=== PATIENT | male | born 1990 | race Caucasian/White ===

== ENCOUNTER 2021-04-21 13:58 | Emergency (ER) | payer OTHER, SELFPAY ==
[2021-04-21 15:16] VITALS: BP 125/74; BP 132/88; PULSE 56; PULSE 58; RESP 18; TEMP 36.8; O2SAT 100; O2SAT 99; BMI 27.3
--- NOTE | 2021-04-21 15:20 | ED.GENADULT ---
HPI - General Adult General Chief complaint: Ear Problems <SANDRA Weiss Last Filed: 04/23/21 00:00> Stated complaint: EAR RINGING, DIZZINESS <SANDRA Weiss Last Filed: 04/23/21 00:00> Time Seen by Provider: 04/21/21 15:16 <SANDRA Weiss Last Filed: 04/23/21 00:00> Source: patient <SANDRA Dove Last Filed: 04/21/21 17:01> Mode of arrival: ambulatory <SANDRA Dove Last Filed: 04/21/21 17:01> History of Present Illness HPI narrative: 30-year-old male with no significant past medical history presenting to the ED complaining right ear ringing beginning last night around 10:00 p.m. with associated lightheadedness/dizziness and feeling off balance. Admits symptoms lasted about 2 minutes. Reports symptoms exacerbated by anxiety. Denies symptoms at present. Denies headache, visual loss, nausea/vomiting, fever, chills, cough, sore throat, CP/SOB, LOC <SANDRA Dove Last Filed: 04/21/21 17:01> Related Data Allergies/adverse reactions: Allergies Allergy/AdvReac Type Severity Reaction Status Date / Time No Known Allergies Allergy Verified 04/21/21 15:15 [No Known Allergies*] <SANDRA Weiss Last Filed: 04/23/21 00:00> Review of Systems Review of Systems: Constitutional: No Fever, No Chills, No Fatigue, No Malaise ENT/Mouth: No Hearing loss, + Ear Pain, +ear ringing, No Nasal Congestion, No Sinus Pain, No sore throat, No Rhinorrhea, No Swallowing Difficulty Eyes: No Eye Pain, No Swelling, No Redness, No Foreign Body, No Vision Changes Cardiovascular: No Chest Pain, No SOB Respiratory: No Cough, No Dyspnea Gastrointestinal: No Nausea, No Vomiting, No Abdominal pain Genitourinary: No Dysuria, No Hematuria, No Flank Pain Musculoskeletal: No joint pain, No Myalgias, No Joint Swelling Skin: No Skin Lesions, No rash Neuro: No Weakness, No Numbness, No Paresthesias, No Loss of Consciousness, + lightheadedness/ Dizziness, No Headache <SANDRA Dove Last Filed: 04/21/21 17:01> Yes all other systems are reviewed and are negative <SANDRA Dove - Last Filed: 04/21/21 17:01> Neurologic: Denies Abnormal speech present <SANDRA Dove - Last Filed: 04/21/21 17:01> [facility] Past Medical History Attestation statement: The following information was validated with the patient. <SANDRA Dove - Last Filed: 04/21/21 17:01> Medical History: Medical History (Updated 04/22/21 @ 00:01 by Patricia Calvo) No pertinent past medical history <SANDRA Weiss - Last Filed: 04/23/21 00:00> Social History Social History: Social History Advance Directives: No Advance Directives Information Provided: No <SANDRA Weiss - Last Filed: 04/23/21 00:00> Physical Exam Vital Signs: Vital Signs: Last Vital Signs Temp 98.3 F 04/21/21 16:04 Pulse 66 04/21/21 16:06 Resp 16 04/21/21 16:04 BP 121/75 04/21/21 16:06 Pulse Ox 100 04/21/21 16:04 Body Mass Index 27.3 <SANDRA Weiss - Last Filed: 04/23/21 00:00> Vital Signs: Last Vital Signs Temp 98.3 F 04/21/21 16:04 Pulse 66 04/21/21 16:06 Resp 16 04/21/21 16:04 BP 121/75 04/21/21 16:06 Pulse Ox 100 04/21/21 16:04 Body Mass Index 27.3 <SANDRA Dove - Last Filed: 04/21/21 17:01> Const: General: cooperative, healthy appearing and no acute distress <SANDRA Dove - Last Filed: 04/21/21 17:01> Orientation/consciousness: patient oriented x3 <SANDRA Dove - Last Filed: 04/21/21 17:01> Limitations: no limitations <SANDRA Dove - Last Filed: 04/21/21 17:01> HENMT: Head: Yes normal to inspection and Yes atraumatic <SANDRA Dove - Last Filed: 04/21/21 17:01> Ears: hearing grossly normal bilaterally, external ears normal, TM's normal bilaterally and mastoids normal <SANDRA Dove - Last Filed: 04/21/21 17:01> General nose exam: Normal external nose present and Normal nares present <Keysha Warner [place] - Last Filed: 04/21/21 17:01> Face and sinus: Yes normal facial exam <Keysha Warner [place] - Last Filed: 04/21/21 17:01> Mouth: Normal oral and palatal mucosa present <Keysha Warner [place] - Last Filed: 04/21/21 17:01> Throat: Yes posterior oropharynx normal, Yes tonsils normal and Yes uvula midline <Keysha Warner [place] - Last Filed: 04/21/21 17:01> Eyes: General: appearance normal, both eyes and all related structures <Keysha Warner [place] - Last Filed: 04/21/21 17:01> Pupils: Equal, round and reactive pupils present <Keysha Warner [place] - Last Filed: 04/21/21 17:01> EOM: EOMs intact bilaterally <Keysha Warner [place] - Last Filed: 04/21/21 17:01> Neck: Neck: Yes normal visual inspection and Yes no lymphadenopathy <Keysha Warner [place] - Last Filed: 04/21/21 17:01> Resp: Effort & Inspection: normal respiratory effort <SANDRA Dove Last Filed: 04/21/21 17:01> Auscultation: clear to auscultation bilaterally, no rales, no rhonchi and no wheezes <Keysha Warner [facility] Last Filed: 04/21/21 17:01> Cardio: Rate: regular rate <Keysha Warner [facility] Last Filed: 04/21/21 17:01> Heart sounds: S1 normal heart sound present and S2 normal heart sound present <SANDRA Dove - Last Filed: 04/21/21 17:01> GI: Inspection: Yes normal to inspection <SANDRA Dove - Last Filed: 04/21/21 17:01> Palpation (GI): Soft to palpation, nontender, no guarding and not rigid <Keysha [facility] - Last Filed: 04/21/21 17:01> Skin: Rashes: no rashes <SANDRA Dove - Last Filed: 04/21/21 17:01> Wounds: no wounds <SANDRA Dove - Last Filed: 04/21/21 17:01> Neuro: General: patient oriented x3, gait normal, tone normal, moves all extremities, no focal motor deficits and CN's II-XI intact bilaterally <SANDRA Dove - Last Filed: 04/21/21 17:01> Cranial nerves: Yes Equal, round and reactive pupils present <SANDRA Dove - Last Filed: 04/21/21 17:01> Cognition (Neuro): normal cognition <SANDRA Dove - Last Filed: 04/21/21 17:01> Speech: No Abnormal speech present <SANDRA Dove - Last Filed: 04/21/21 17:01> Gait exam (Neuro): Normal gait present <SANDRA Dove - Last Filed: 04/21/21 17:01> Motor exam (neuro): 5/5 motor strength present throughout and Pronator motor function not present <SANDRA Dove - Last Filed: 04/21/21 17:01> Extrem: General: Yes normal to inspection <SANDRA Dove - Last Filed: 04/21/21 17:01> Course Course Course Narrative: Patient presents to the ED for resolved Dizziness with ringing in the EAR and off balance that occurred today while walking. Patient presently has no symptoms. negative for any neuro deficits. Basic labs ordered. This is a medical screening. <SANDRA Weiss - Last Filed: 04/23/21 00:00> Patient presents to the ED for resolved Dizziness with ringing in the EAR and off balance that occurred today while walking. Patient presently has no symptoms. negative for any neuro deficits. Basic labs ordered. This is a medical screening. -1700--orthostatic vital signs negative. Labs unremarkable. EKG nonischemic. Results discussed with patient including worrisome signs and symptoms and strict return precautions, he verbalized understanding feel safe for discharge home <SANDRA Dove - Last Filed: 04/21/21 17:01> Medical Decision Making MDM Narrative Medical decision making narrative: 30-year-old male with no significant past medical history presenting to the ED complaining right ear ringing beginning last night around 10:00 p.m. with associated lightheadedness/dizziness and feeling off balance. Denies symptoms at present. On exam vital signs stable, NAD, well appearing, no focal neuro deficits. Low concern for CVA/TIA, ACS, or BPPV. Rule out metabolic abnormalities Plan: EKG, labs, GRACE, orthostatic vital signs, reassess <SANDRA Dove - Last Filed: 04/21/21 17:01> Lab Data Result diagrams: : 04/21/21 16:15 04/21/21 16:15 <SANDRA Weiss - Last Filed: 04/23/21 00:00> Labs: Lab Results 04/21/21 04/21/21 04/21/21 Range/Units 16:15 16:15 16:15 WBC 10.3 (4.8-10.8) X10*3/uL RBC 4.62 (4.60-5.80) X10*6/uL Hgb 14.1 (14.0-18.0) g/dl Hct 41.7 L (42-52) % MCV 90.3 (80-98) fL MCH 30.5 (27.0-33.0) pg MCHC 33.8 (31.0-36.0) g/dl RDW 13.1 (11.0-16.0) % Plt Count 250 (160-400) X10*3/uL MPV 9.9 (9.4-12.4) fL Immature Gran % (Auto) 0.2 (0.0-0.4) % Neut % (Auto) 72.4 (45-73) % Lymph % (Auto) 17.2 L (20-40) % Cocke % (Auto) 7.6 (2-11) % Eos % (Auto) 2.2 (0-4) % Baso % (Auto) 0.4 (0-2) % Lymph # (Auto) 1.8 (1.2-4.9) X10*3/uL Cocke # (Auto) 0.8 (0.1-1.2) X10*3/uL Eos # (Auto) 0.2 (0.0-0.4) X10*3/uL Baso # (Auto) 0.0 (0.0-0.2) X10*3/uL Abs Immat Gran (auto) 0.02 (0.00-0.03) X10*3/uL Absolute Neuts (auto) 7.5 (2.0-8.3) X10*3/uL Absolute Nucleated RBC 0.000 (0.0-0.012) X10*3/uL Nucleated RBC % (auto) 0.0 (0.0-0.2) /100WBC Sodium 140 (135-145) mmol/L Potassium 4.3 (3.3-5.1) mmol/L Chloride 105 (96-108) mmol/L Carbon Dioxide 26 (22-29) mmol/L Anion Gap 13 (12-20) BUN 10 (9-16) mg/dL Creatinine 0.94 (0.5-1.4) mg/dL Estim Creat Clear Calc 118.1 Estimated GFR > 60 Random Glucose 81 (60-115) mg/dL Calcium 9.5 (8.4-10.2) mg/dL Magnesium 2.1 (1.6-2.6) mg/dL Total Bilirubin 0.5 (0.0-1.0) mg/dL AST 23 (5-37) U/L ALT 34 (0-40) U/L Alkaline Phosphatase 57 (39-117) U/L Total Protein 8.0 (6.5-8.0) g/dL Albumin 4.9 (3.5-5.0) g/dL <SANDRA Weiss - Last Filed: 04/23/21 00:00> Lab Results 04/21/21 04/21/21 04/21/21 Range/Units 16:15 16:15 16:15 WBC 10.3 (4.8-10.8) X10*3/uL RBC 4.62 (4.60-5.80) X10*6/uL Hgb 14.1 (14.0-18.0) g/dl Hct 41.7 L (42-52) % MCV 90.3 (80-98) fL MCH 30.5 (27.0-33.0) pg MCHC 33.8 (31.0-36.0) g/dl RDW 13.1 (11.0-16.0) % Plt Count 250 (160-400) X10*3/uL MPV 9.9 (9.4-12.4) fL Immature Gran % (Auto) 0.2 (0.0-0.4) % Neut % (Auto) 72.4 (45-73) % Lymph % (Auto) 17.2 L (20-40) % Cocke % (Auto) 7.6 (2-11) % Eos % (Auto) 2.2 (0-4) % Baso % (Auto) 0.4 (0-2) % Lymph # (Auto) 1.8 (1.2-4.9) X10*3/uL Cocke # (Auto) 0.8 (0.1-1.2) X10*3/uL Eos # (Auto) 0.2 (0.0-0.4) X10*3/uL Baso # (Auto) 0.0 (0.0-0.2) X10*3/uL Abs Immat Gran (auto) 0.02 (0.00-0.03) X10*3/uL Absolute Neuts (auto) 7.5 (2.0-8.3) X10*3/uL Absolute Nucleated RBC 0.000 (0.0-0.012) X10*3/uL Nucleated RBC % (auto) 0.0 (0.0-0.2) /100WBC Sodium 140 (135-145) mmol/L Potassium 4.3 (3.3-5.1) mmol/L Chloride 105 (96-108) mmol/L Carbon Dioxide 26 (22-29) mmol/L Anion Gap 13 (12-20) BUN 10 (9-16) mg/dL Creatinine 0.94 (0.5-1.4) mg/dL Estim Creat Clear Calc 118.1 Estimated GFR > 60 Random Glucose 81 (60-115) mg/dL Calcium 9.5 (8.4-10.2) mg/dL Magnesium 2.1 (1.6-2.6) mg/dL Total Bilirubin 0.5 (0.0-1.0) mg/dL AST 23 (5-37) U/L ALT 34 (0-40) U/L Alkaline Phosphatase 57 (39-117) U/L Total Protein 8.0 (6.5-8.0) g/dL Albumin 4.9 (3.5-5.0) g/dL <SANDRA Dove - Last Filed: 04/21/21 17:01> ECG Data Attestation: I personally reviewed and interpreted this ECG as follows: <SANDRA Dove - Last Filed: 04/21/21 17:01> Interpretation: EKG sinus bradycardia with a rate of 48. Nonischemic/NSTEMI <SANDRA Dove - Last Filed: 04/21/21 17:01> Discharge Plan Discharge Clinical Impression: Ear ringing, Episodic lightheadedness <SANDRA Weiss - Last Filed: 04/23/21 00:00> Patient Disposition: Home, Self-Care <SANDRA Weiss - Last Filed: 04/23/21 00:00> Instructions: Tinnitus (ED) <SANDRA Weiss - Last Filed: 04/23/21 00:00> Additional Instructions: Your blood work was reassuring today in the emergency department It is important for you to follow-up with the ear nose throat specialist Please stay hydrated If her symptoms persist or worsen, recur/become persistent or unbearable please return to the ED <SANDRA Weiss - Last Filed: 04/23/21 00:00> Referrals: Kevyn Chow [Physician] - 2 days <SANDRA Weiss - Last Filed: 04/23/21 00:00> Interventions: ED Discharge Assessment Last Done: 04/21/21 17:06 <SANDRA Weiss - Last Filed: 04/23/21 00:00> Discharge Date/Time: 04/21/21 17:06 <SANDRA Weiss - Last Filed: 04/23/21 00:00>
--- NOTE | 2021-04-21 15:45 | ECG_ITS ---
Test Reason : DIZZINESS Blood Pressure : / mmHG Vent. Rate : 048 BPM Atrial Rate : 048 BPM P-R Int : 148 ms QRS Dur : 092 ms QT Int : 442 ms P-R-T Axes : 042 041 022 degrees QTc Int : 394 ms Sinus bradycardia Otherwise normal ECG When compared with ECG of 04-JUN-2017 12:09, No significant change was found Referred By: Keysha Warner Electronically Signed By:DENNY WILLAMS MD
[2021-04-21 16:04] VITALS: BP 121/77; PULSE 50; RESP 16; TEMP 36.8; O2SAT 100
[2021-04-21 16:05] VITALS: BP 122/71; BP 124/69; PULSE 50; PULSE 53
[2021-04-21 16:06] VITALS: BP 121/75; PULSE 66
[2021-04-21 16:19] LABS: MANUAL DIFF FLAG NO
[2021-04-21 16:25] LABS: Basophils Percent Auto 0.4 % (0-2); Eosinophils Absolute Auto 0.2 X10*3/uL (0.0-0.4); Eosinophils Percent Auto 2.2 % (0-4); Hematocrit 41.7 % (42-52); Hemoglobin 14.1 g/dl (14.0-18.0); Imm Gran Abs Auto 0.02 X10*3/uL (0.00-0.03); Imm Gran Pct Auto 0.2 % (0.0-0.4); Lymphocytes Absolute Auto 1.8 X10*3/uL (1.2-4.9); Lymphocytes Percent Auto 17.2 % (20-40); Mean Corpuscular HGB Conc 33.8 g/dl (31.0-36.0); Mean Corpuscular Hemoglobin 30.5 pg (27.0-33.0); Mean Corpuscular Volume 90.3 fL (80-98); Mean Platelet Volume 9.9 fL (9.4-12.4); Monocytes Absolute Auto 0.8 X10*3/uL (0.1-1.2); Monocytes Percent Auto 7.6 % (2-11); Neutrophils Absolute Auto 7.5 X10*3/uL (2.0-8.3); Neutrophils Percent Auto 72.4 % (45-73); Platelet Count 250 X10*3/uL (160-400); Red Blood Count 4.62 X10*6/uL (4.60-5.80); Red Cell Distribution Width 13.1 % (11.0-16.0); White Blood Count 10.3 X10*3/uL (4.8-10.8)
[2021-04-21 16:44] LABS: Magnesium 2.1 mg/dL (1.6-2.6)
[2021-04-21 16:45] LABS: Alanine Aminotransferase 34 U/L (0-40); Albumin Level 4.9 g/dL (3.5-5.0); Alkaline Phosphatase 57 U/L (39-117); Anion Gap 13 (12-20); Aspartate Amino Transferase 23 U/L (5-37); Bilirubin Total 0.5 mg/dL (0.0-1.0); Blood Urea Nitrogen 10 mg/dL (9-16); Calcium 9.5 mg/dL (8.4-10.2); Carbon Dioxide 26 mmol/L (22-29); Chloride 105 mmol/L (96-108); Creatinine Clr Calc Pharmacy 118.1; Estimated Glomerular Filt Rate > 60; Glucose Random 81 mg/dL (60-115); Potassium 4.3 mmol/L (3.3-5.1); Sodium 140 mmol/L (135-145)
== END 2021-04-21 17:06 | disposition home or self-care (01) ==
PROVIDERS: Physician Assistant; Emergency Provider Emergency Medicine
DX: H92.01 Otalgia, right ear (principal); H93.13 Tinnitus, bilateral; R42 Dizziness and giddiness
CPT/HCPCS: 36415; 80053; 83735; 85025; 93005; 99283; 99284

== ENCOUNTER 2022-10-06 14:08 | Emergency (ER) | payer OTHER, SELFPAY ==
--- NOTE | ~2022-10-06 | XR_ITS ---
EXAMINATION: XR HAND, RIGHT XR HAND, LEFT CLINICAL INFORMATION: Pain after dogbite COMPARISON: 01/24/2019 TECHNIQUE: 3 views of the right hand. 3 views of the left hand. FINDINGS: Right hand: No fracture or dislocation. Appropriate alignment. Joint spaces are maintained. Soft tissue gas in the thenar region. No radiopaque foreign body. Left hand: No fracture or dislocation. Appropriate alignment. Joint spaces are maintained. The soft tissues are unremarkable. No radiopaque foreign body. XR/XR hand LT min 3V IMPRESSION: Soft tissue gas in the right thenar region. No radiopaque foreign body. No fracture or malalignment.
--- NOTE | ~2022-10-06 | XR_ITS ---
EXAMINATION: XR HAND, RIGHT XR HAND, LEFT CLINICAL INFORMATION: Pain after dogbite COMPARISON: 01/24/2019 TECHNIQUE: 3 views of the right hand. 3 views of the left hand. FINDINGS: Right hand: No fracture or dislocation. Appropriate alignment. Joint spaces are maintained. Soft tissue gas in the thenar region. No radiopaque foreign body. Left hand: No fracture or dislocation. Appropriate alignment. Joint spaces are maintained. The soft tissues are unremarkable. No radiopaque foreign body. XR/XR hand RT min 3V IMPRESSION: Soft tissue gas in the right thenar region. No radiopaque foreign body. No fracture or malalignment.
--- NOTE | 2022-10-06 14:20 | ED.ANIMALBIT ---
HPI - Animal Bite General Chief Complaint: Animal Bite <SANDRA Rogel - Last Filed: 10/06/22 14:22> Stated Complaint: DOG BITES TO HANDS <SANDRA Rogel - Last Filed: 10/06/22 14:22> Time Seen by Provider: 10/06/22 15:56 <SANDRA Rogel - Last Filed: 10/06/22 14:22> Source: patient <Katiuska Jones MD - Last Filed: 10/06/22 17:01> Mode of arrival: ambulatory <Katiuska Jones MD - Last Filed: 10/06/22 17:01> Limitations: no limitations <Katiuska Jones MD - Last Filed: 10/06/22 17:01> History of Present Illness HPI narrative: Patient comes to the emergency room complaining of bilateral hand dog bites. Patient states that this dog belongs to his cousin. Patient is old and grumpy. Patient tried taking a chain of the dogs neck, the dog snapped and bit him in both hands. Patient states that he is unsure about his tetanus shot. Also, to his knowledge the dog has no immunizations but has belong to his cousin for a long time. Patient states that he is not concerned with rabies, states that the dog has bitten many people in the past and no one has gotten rabies. Patient states that his cousin decided to euthanize the dog today because the dog has a poor quality of life <Katiuska Jones MD - Last Filed: 10/06/22 17:01> Related Data Home Medications: Previous Rx's Medication Instructions Recorded amoxicillin 500 mg-potassium 1 tab PO BID #14 tabs 10/06/22 clavulanate 125 mg tablet (Augmentin) ibuprofen 600 mg tablet 600 mg PO TID PRN fever or pain 10/06/22 #20 tabs <SANDRA Rogel - Last Filed: 10/06/22 14:22> Allergies/Adverse Reactions: Allergies Allergy/AdvReac Type Severity Reaction Status Date / Time No Known Allergies Allergy Verified 04/21/21 15:15 [No Known Allergies*] <SANDRA Rogel - Last Filed: 10/06/22 14:22> Review of Systems Review of Systems: Constitutional : No Weight loss, No Fever, No Chills, No Night Sweats, No Fatigue, No Malaise ENT/Mouth : No Hearing loss, No Ear Pain, No Nasal Congestion, No Sinus Pain, No Hoarseness, No sore throat, No Rhinorrhea, No Swallowing Difficulty Eyes: No Eye Pain, No Swelling, No Redness, No Foreign Body, No Discharge, No Vision Changes Cardiovascular : No Chest Pain, No SOB, No Dyspnea on Exertion, No Orthopnea, No Edema, No Palpitations Respiratory : No Cough, No Sputum, No Wheezing, No Smoke Exposure, No Dyspnea Gastrointestinal : No Nausea, No Vomiting, No Diarrhea, No Constipation, No abdominal Pain, No Hematochezia, No Melena Genitourinary : no irregular bleeding, No Dysuria, No Urinary Frequency, No Hematuria, No Urinary Incontinence, No Urgency, No Flank Pain, No Urinary Flow Changes, No Hesitancy Musculoskeletal : No joint pain, No Myalgias, No Joint Swelling Skin : Bilateral puncture wounds to both hands Neuro : No Weakness, No Numbness, No Paresthesias, No Loss of Consciousness, No Dizziness, No Headache Psych : No Anxiety/Panic, No Depression, No SI/HI/AH/VH, No Social Issues, Heme/Lymph: No Bruising, No Bleeding,No Lymphadenopathy Endocrine : No Polyuria, No Polydipsia, No Temperature Intolerance <Katiuska Jones MD - Last Filed: 10/06/22 17:01> [facility] Past Medical History Medical History: Medical History No pertinent past medical history <SANDRA Rogel - Last Filed: 10/06/22 14:22> Social History Social History: Social History Advance Directives: No Advance Directives Information Provided: Yes <SANDRA Rogel - Last Filed: 10/06/22 14:22> Physical Exam ED Vital Signs: Vital Signs - 24 hr 10/06/22 15:05 Temperature 97.0 F Pulse Rate 77 Respiratory Rate 16 Blood Pressure 114/78 Pulse Oximetry 98 Oxygen Delivery Method Room Air BMI result Body Mass Index 26.2 <SANDRA Rogel - Last Filed: 10/06/22 14:22> Vital Signs - 24 hr 10/06/22 15:05 Temperature 97.0 F Pulse Rate 77 Respiratory Rate 16 Blood Pressure 114/78 Pulse Oximetry 98 Oxygen Delivery Method Room Air BMI result Body Mass Index 26.2 <Katiuska Jones MD - Last Filed: 10/06/22 17:01> Const Other: Appearance: Alert. Oriented X3. No acute distress. Eyes: Pupils equal, round and reactive to light. ENT: Pharynx normal. Neck: Normal inspection. Neck supple. No lymph nodes noted. No crepitus CVS: Normal heart rate and rhythm. Pulses normal. Normal S1 and S2 Respiratory: No respiratory distress. Breath sounds normal. No Wheezing. No rales Abdomen: Soft and nontender. No rigidity. No distention. Skin: Skin warm and dry. Normal skin color. Normal skin turgor. Extremities: No lower extremity edema. Patient has multiple dog bites to the dorsum and palm of the right hand, patient has puncture wound to the left hand on the dorsum, bleeding controlled Neuro: Oriented X 3. No motor deficit. No sensory deficit. Moving all extremities. No slurred speech. CN 2 through 12 grossly intact Psych: calm, cooperative, normal affect <Katiuska Jones MD - Last Filed: 10/06/22 17:01> Course Course Course Narrative: RME - 31 yo male presenting to the ER for evaluation of dog bite to bilateral hands occurred just [employer]. Dog was his cousin's pitbull/deng mix. Right index finger w/ lac and swelling. Needs Tdap. Dog not up to date on shots, going [facility] the pound to get put down. <SANDRA Rogel - Last Filed: 10/06/22 14:22> Medications Administered Discontinued Medications Generic Name Dose Route Start Last Admin Trade Name Doni PRN Reason Stop Dose Admin Amoxicillin/Clavulanate Potassium 875 mg 10/06/22 14:21 10/06/22 15:22 Amoxicillin/Potassium Clav 875 Mg Tablet PO 10/06/22 14:22 875 mg ONCE ONE Administration Diphtheria/Tetanus/Acell Pertussis 0.5 ml 10/06/22 14:21 10/06/22 15:20 Diphth,Pertus(Acell),Tet Adult 0.5 Ml Syringe IM 10/06/22 14:22 0.5 ml .ONCE ONE Administration Ibuprofen 600 mg 10/06/22 14:21 10/06/22 15:22 Ibuprofen 600 Mg Tablet PO 10/06/22 14:22 600 mg ONCE ONE Administration <SANDRA Rogel - Last Filed: 10/06/22 14:22> Medications Administered Discontinued Medications Generic Name Dose Route Start Last Admin Trade Name Doni PRN Reason Stop Dose Admin Amoxicillin/Clavulanate Potassium 875 mg 10/06/22 14:21 10/06/22 15:22 Amoxicillin/Potassium Clav 875 Mg Tablet PO 10/06/22 14:22 875 mg ONCE ONE Administration Diphtheria/Tetanus/Acell Pertussis 0.5 ml 10/06/22 14:21 10/06/22 15:20 Diphth,Pertus(Acell),Tet Adult 0.5 Ml Syringe IM 10/06/22 14:22 0.5 ml .ONCE ONE Administration Ibuprofen 600 mg 10/06/22 14:21 10/06/22 15:22 Ibuprofen 600 Mg Tablet PO 10/06/22 14:22 600 mg ONCE ONE Administration <Katiuska Jones MD - Last Filed: 10/06/22 17:01> Medical Decision Making Medical Decision Making MDM Narrative: -patient's hands were soaked in normal saline with Betadine -patient received 1 dose IM of Tdap and p.o. Augmentin -despite our best efforts, patient declined rabies shots. Patient aware that rabies is nearly 100% lethal -discussed with the patient that stitches are not indicated in the hand <Katiuska Jones MD - Last Filed: 10/06/22 17:01> Discharge Plan Discharge Clinical Impression: Dog bite <SANDRA Rogel - Last Filed: 10/06/22 14:22> Patient Disposition: Home, Self-Care <SANDRA Rogel - Last Filed: 10/06/22 14:22> Instructions: Animal Bite (ED) <SANDRA Rogel - Last Filed: 10/06/22 14:22> Additional Instructions: Please follow-up with your primary care physician tomorrow. If you have any worsening or new symptoms, please return to the emergency room or call 911 <SANDRA Rogel - Last Filed: 10/06/22 14:22> Prescriptions: New amoxicillin-pot clavulanate [Augmentin] 500-125 mg tablet 1 tab PO BID Qty: 14 0RF ibuprofen 600 mg tablet 600 mg PO TID PRN (Reason: fever or pain) Qty: 20 0RF <SANDRA Rogel - Last Filed: 10/06/22 14:22>
[2022-10-06 15:02] VITALS: BP 132/76; PULSE 86; O2SAT 97
[2022-10-06 15:05] VITALS: BP 114/78; PULSE 77; RESP 16; TEMP 36.1; O2SAT 98; BMI 26.2
[2022-10-06] MEDS: Diphth,Pertus(ACell),Tet Adult 0.5 ML SYRINGE IM (15:20)
[2022-10-06] MEDS: Ibuprofen 600 MG TABLET PO (15:22)
[2022-10-06] MEDS: Amoxicillin/Potassium Clav 875 MG TABLET PO (15:22)
== END 2022-10-06 17:37 | disposition home or self-care (01) ==
PROVIDERS: Emergency Provider Emergency Medicine
DX: S60.571A Other superficial bite of hand of right hand, initial encounter (principal); S60.572A Other superficial bite of hand of left hand, initial encounter; S60.512A Abrasion of left hand, initial encounter; S60.511A Abrasion of right hand, initial encounter; W54.0XXA Bitten by dog, initial encounter; Y93.9 Activity, unspecified; Y92.9 Unspecified place or not applicable; Y99.9 Unspecified external cause status; Z79.899 Other long term (current) drug therapy
CPT/HCPCS: 73130; 90471; 90715; 99283; 99284